=== PATIENT | female | born 1990 | race Caucasian/White ===

== ENCOUNTER 2017-06-18 20:05 | Emergency (ER) | payer MEDICAID ==
[~2017-06-18] VITALS: Ht 170.2 cm; Wt 68.0 kg
[2017-06-18] MEDS ORDERED: HYDROCODONE/APAP 5-325MG TABLET PO ONE (20:15)
[2017-06-18] MEDS ORDERED: CEPHALEXIN MONOHYDRATE 500 MG CAPSULE PO ONE (20:15)
[2017-06-18] MEDS ORDERED: TDAP DIPH,PERTUSS,TET VAC/PF 0.5 ML DISP.SYRIN IM ONE ×2 (20:15→21:05)
[2017-06-18] MEDS ORDERED: LORAZEPAM 0.5 MG TABLET PO ONE (20:15)
[2017-06-18] MEDS ORDERED: ONDANSETRON 4 MG/2 ML VIAL IV ONE (20:15)
[2017-06-18] MEDS ORDERED: OLANZAPINE 5 MG TABLET PO ONE (20:15)
[2017-06-18] MEDS ORDERED: LORAZEPAM 1 MG TABLET ONE (20:29)
[2017-06-18] MEDS ORDERED: HYDROCODONE/APAP 5-325MG TABLET ONE (20:30)
[2017-06-18] MEDS ORDERED: OLANZAPINE 5 MG TABLET ONE (20:30)
[2017-06-18] MEDS ORDERED: ONDANSETRON ODT 4 MG TAB.RAPDIS SL ONE (20:30)
[2017-06-18] MEDS ORDERED: ONDANSETRON ODT 4 MG TAB.RAPDIS ONE (20:37)
[2017-06-18] MEDS ORDERED: CEPHALEXIN MONOHYDRATE 500 MG CAPSULE ONE (21:05)
--- NOTE | 2017-06-18 21:31 | NUR ---
Patient discharged to home, with sister, in stable conditon. Written and verbal after care instructions given. Patient verbalizes understanding of instructions.
== END 2017-06-18 21:39 | disposition home or self-care (01) ==
LOC: EDBD 20:06 → ER 20:06
DX: S01.81XA Laceration without foreign body of other part of head, initial encounter (principal); F41.9 Anxiety disorder, unspecified; Y08.89XA Assault by other specified means, initial encounter; Y93.89 Activity, other specified; Y92.89 Other specified places as the place of occurrence of the external cause; Y99.8 Other external cause status
CPT/HCPCS: 90715; A4217; A4663; Q0162

== ENCOUNTER 2021-01-03 04:22 | Emergency (ER) | payer MEDICAID, OTHER ==
--- NOTE | 2021-01-03 04:29 | NUR ---
Patient was called to be triaged but had a large dog with her with no dog leash on the dog. Dog was wondering around waiting , entrance hallway and attempted to run outside ER exit. Patient was asked that the dog needed to be on a leash for the dog's safety and patients and staffs in the ER. Patient elected not to be seen by ERMD or be triaged. Patient was not triaged or seen by ERMD.
== END 2021-01-03 04:30 | disposition left against medical advice (07) ==
LOC: ER 04:28
DX: Z53.21 Procedure and treatment not carried out due to patient leaving prior to being seen by health care provider (principal)

== ENCOUNTER 2021-04-23 00:31 | Emergency (ER) | payer OTHER ==
[~2021-04-23] VITALS: Ht 175.3 cm; Wt 90.7 kg
[2021-04-23] MEDS ORDERED: ONDANSETRON 4 MG/2 ML VIAL IV ONE (01:30)
[2021-04-23] MEDS ORDERED: CLINDAMYCIN PHOSPHATE IV 900 MG in IV DEXTROSE 5% 100 ML IV ONE (01:30)
[2021-04-23] MEDS ORDERED: HYDROMORPHONE 1 MG/1 ML DISP.SYRIN IV ONE ×5 (01:30→08:45)
[2021-04-23] MEDS ORDERED: ONDANSETRON 4 MG/2 ML VIAL ONE (01:50)
[2021-04-23] MEDS ORDERED: CLINDAMYCIN PHOSPHATE 900 MG/6 ML VIAL ONE (01:50)
[2021-04-23] MEDS ORDERED: HYDROMORPHONE 1 MG/1 ML DISP.SYRIN ONE ×5 (01:50→08:43)
[2021-04-23 02:09] LABS: MEAN CORPUSCULAR HEMOGLOBIN 30.3 uug (24.7-32.8); MEAN CORPUSCULAR VOLUME 89.2 fL (75.5-95.3); PLATELET COUNT (AUTO) 196 K/uL (179-408)
[2021-04-23 02:10] LABS: CARBON DIOXIDE 26 mmol/L (21-32); CHLORIDE 100 mmol/L (98-107); CREATININE 0.7 mg/dL (0.6-1.3); GLUCOSE 97 mg/dL (74-106); POTASSIUM 3.4 mmol/L (3.5-5.1); UREA NITROGEN, BLOOD 5 mg/dL (7-18)
[2021-04-23 02:16] LABS: ALANINE AMINOTRANSFERASE 14 U/L (14-59); ALKALINE PHOSPHATASE 99 U/L (50-136); ASPARTATE AMINOTRANSFERASE 11 U/L (15-37); BILIRUBIN,DIRECT < 0.1 mg/dL (0.0-0.2); BILIRUBIN,TOTAL 0.3 mg/dL (0.2-1.0); TOTAL PROTEIN, SERUM 7.5 g/dL (6.4-8.2)
--- NOTE | 2021-04-23 03:00 | NUR ---
DR TESFAYE SPOKE WITH DR GRANT FROM [facility] WHO ACCEPTED.
--- NOTE | 2021-04-23 05:11 | NUR ---
JOCE OBANDO FROM [facility] CALLED BACK WITH TRANSFER INFO. PATIENT WILL BE GOING TO [facility] ER, CALL FOR REPORT IS . ACCEPTING MD IS DR GRANT.
--- NOTE | 2021-04-23 05:17 | NUR ---
CALLED [facility], ETA [facility]ER IS BETWEEN 7 AND 8 AM.
--- NOTE | 2021-04-23 06:22 | NUR ---
As orderd by Dr Newton, Esmolol increase to 100mcg/kg/min. BP 144/88, HR 75, RR 16, O2 sats 100 on 2 Liter N/C.
--- NOTE | 2021-04-23 06:43 | NUR ---
Gave SBAR report to Raphael Charge Nurse from [facility]
--- NOTE | 2021-04-23 08:55 | NUR ---
PATIENT WAS PICKED UP BY [facility] REPORT GIVEN TO EMT.
== END 2021-04-23 08:55 | disposition short-term general hospital (02) ==
LOC: ER 00:36
DX: O98.813 Other maternal infectious and parasitic diseases complicating pregnancy, third trimester (principal); Z3A.28 28 weeks gestation of pregnancy; S51.811D Laceration without foreign body of right forearm, subsequent encounter; L03.113 Cellulitis of right upper limb; V49.88XD Car occupant (driver) (passenger) injured in other specified transport accidents, subsequent encounter; O99.333 Smoking (tobacco) complicating pregnancy, third trimester; Z20.822 Contact with and (suspected) exposure to COVID-19; F11.10 Opioid abuse, uncomplicated; F17.210 Nicotine dependence, cigarettes, uncomplicated
CPT/HCPCS: 36415; 73090; 85025; 85730; 87040; 87070; 87077; A4663; J1170; J2405; J3490; J7060

== ENCOUNTER 2021-07-17 13:48 | Emergency (ER) | payer OTHER ==
[~2021-07-17] VITALS: Ht 175.3 cm; Wt 87.1 kg
[2021-07-17] MEDS ORDERED: VANCOMYCIN IV 1,000 MG in IV DEXTROSE 5% 250 ML IV ONE (14:15)
[2021-07-17] MEDS ORDERED: CEFTRIAXONE 1 G in IV DEXTROSE 5% 50 ML IV ONE (14:15)
[2021-07-17] MEDS ORDERED: MUPIROCIN 2% OINT 22 GM TUBE TP ONE (14:15)
[2021-07-17] MEDS ORDERED: CEFTRIAXONE /D5W 50ML IVPB **ER PYXIS IV ONE (14:45)
[2021-07-17] MEDS ORDERED: VANCOMYCIN IV 200 ML ONE (14:46)
[2021-07-17] MEDS ORDERED: MUPIROCIN 2% OINT 22 GM TUBE ONE (14:47)
[2021-07-17 14:48] LABS: *BILIRUBIN,URIN NEGATIVE (NEGATIVE); *BLOOD, URINE NEGATIVE (NEGATIVE); *COLOR,URINE YELLOW (YELLOW); *KETONES,URINE NEGATIVE (NEGATIVE); *UROBILINOGEN,URINE 0.2 E.U./dl (NORMAL); LEUKOCYTE ESTERASE ,URINE 1+ (NEGATIVE); NITRITE, URINE POSITIVE (NEGATIVE); UGLUCOSE NEGATIVE (NEGATIVE)
[2021-07-17 17:27] LABS: *CLARITY,URINE HAZY (CLEAR); BACTERIA,URINE MANY /HPF (NONE SEEN); RBC,URINE 0-3 /HPF (0-3); SQUAMOUS EPITHELIAL CELL,UR MODERATE /HPF (NONE SEEN); WBC,URINE 20-50 /HPF (0-3)
[2021-07-17] MEDS ORDERED: SULF1TAB48 PO (17:52)
[2021-07-17] MEDS ORDERED: MUPI22OI2 TP (17:52)
[2021-07-17] MEDS ORDERED: CEPH500C2 PO (17:52)
--- NOTE | 2021-07-17 17:58 | NUR ---
Patient discharged to home in stable condition. Written and verbal after care instructions given. Patient verbalizes understanding of instructions. Stressed follow up or return to ER for worsening s/s.pt walks in steady gait. a copy of ua provided for pt to follow up own doctor.
[2021-07-17 18:01] VITALS: BP 129/77
== END 2021-07-17 18:02 | disposition home or self-care (01) ==
LOC: ER 13:48
DX: L03.113 Cellulitis of right upper limb (principal); L03.011 Cellulitis of right finger; Z90.49 Acquired absence of other specified parts of digestive tract; F17.210 Nicotine dependence, cigarettes, uncomplicated; Z16.29 Resistance to other single specified antibiotic; T14.8XXA Other injury of unspecified body region, initial encounter; X58.XXXA Exposure to other specified factors, initial encounter; Y92.89 Other specified places as the place of occurrence of the external cause; R82.71 Bacteriuria
CPT/HCPCS: 73130; 81001; 87077; 87086; 87186; 96365; 96366; 96368; 99284; J0696; J3370; A4663

== ENCOUNTER 2021-08-15 13:27 | Emergency (ER) | payer OTHER ==
[~2021-08-15] VITALS: Ht 175.3 cm; Wt 81.6 kg
[~2021-08-15 13:27] MED LIST: CEPH500C2 PO; MUPI22OI2 TP; SULF1TAB48 PO
[2021-08-15] MEDS ORDERED: MUPI22OI2 TP (13:50)
[2021-08-15] MEDS ORDERED: CLIN300C12 PO (13:50)
[2021-08-15] MEDS ORDERED: DEXAMETHASONE 4 MG TABLET PO ONE (14:00)
[2021-08-15] MEDS ORDERED: CLINDAMYCIN HCL 150 MG CAPSULE PO ONE (14:00)
[2021-08-15] MEDS ORDERED: DEXAMETHASONE 4 MG TABLET ONE (14:02)
[2021-08-15] MEDS ORDERED: CLINDAMYCIN HCL 300 MG CAPSULE ONE (14:02)
[2021-08-15] MEDS ORDERED: DEXAMETHASONE 1 MG TABLET ONE (14:02)
== END 2021-08-15 14:13 | disposition home or self-care (01) ==
LOC: ER 13:27
DX: J03.90 Acute tonsillitis, unspecified (principal); L03.119 Cellulitis of unspecified part of limb; Z90.49 Acquired absence of other specified parts of digestive tract; F17.210 Nicotine dependence, cigarettes, uncomplicated
CPT/HCPCS: 99283; J8540 ×2; A4663